=== PATIENT | female | born 1990 | race American Indian/Alaskan Native ===

== ENCOUNTER 2019-02-12 22:02 | Emergency (ER) | payer SELFPAY ==
--- NOTE | 2019-02-12 22:43 | Event Note ---
ED Screening Note Date of service: 02/12/19 Time: 22:37 ED Screening Note: REPORTS SOLER X FOR YEARS LOCATED TO FRONT OF HEAD AND DAILY . LOCATED TO LT HOLINESS AND THROBBING AND SOMETIMES MAKES EYES HURT. SOMETIMS WITH SENSITIVITUY TO LIGHT AND SOUND. REPORTS FEELING OF MOTION SICKNESS . REPORTS SWELLING AROUND ANKLE X 9 YEARS AGO AFTER CAME OFF THYROID MEDS. H/O OF HYPOTHYROIDISM AND WAS ON LEVOTHYROXINE BUT HAS NOT TAKEN IN 9 YEARS DUE TO LACK, REPORTS TIREDNESS AND WEIGHT GAIN WITH CRISTEL ANKLE SWELLING. SOMETIMES SHOOT CP BUT NONE TODAY. REPORT S SOMETIME SOB WIT ACTIVITY This initial assessment/diagnostic orders/clinical plan/treatment(s) is/are subject to change based on patients health status, clinical progression and re- assessment by fellow clinical providers in the ED. Further treatment and workup at subsequent clinical providers discretion. Patient/guardian urged not to elope from the ED as their condition may be serious if not clinically assessed and managed. Initial orders include: LABS, URINE,CXR
[2019-02-12 23:42] LABS: Basophils % (Auto) 0.4 % (0.0-1.8); Eosinophils # (Auto) 0.1 K/mm3 (0.0-0.4); Eosinophils % (Auto) 0.9 % (0.0-4.3); Hematocrit 37.1 % (30.3-42.9); Hemoglobin 11.9 gm/dl (10.1-14.3); Lymphocytes # (Auto) 2.7 K/mm3 (1.2-5.4); Lymphocytes % (Auto) 27.9 % (13.4-35.0); Mean Corpuscular HGB Conc 32 % (30-34); Mean Corpuscular Volume 79 fl (79-97); Monocytes # (Auto) 0.8 K/mm3 (0.0-0.8); Monocytes % (Auto) 7.9 % (0.0-7.3); Platelet Count 343 K/mm3 (140-440); Red Blood Count 4.72 M/mm3 (3.65-5.03); Red Cell Distribution Width 15.2 % (13.2-15.2)
[2019-02-12 23:58] LABS: Bilirubin,Urine NEG (Negative); Blood,Urine SM (Negative); Color,Urine Yellow (Yellow); Mucus,Urine 3+ /HPF; Protein,Urine <15 mg/dL mg/dL (Negative); Urobilinogen,Urine < 2.0 mg/dL (<2.0)
[2019-02-13 00:04] LABS: Alanine Aminotransferase 10 units/L (7-56); Albumin 3.8 g/dL (3.9-5); BUN/Creatinine Ratio 17; Blood Urea Nitrogen 12 mg/dL (7-17); Calcium 8.5 mg/dL (8.4-10.2); Hemolysis Index 11
[2019-02-13 00:11] LABS: Free T4 (Free Thyroxine) 0.98 ng/dL (0.76-1.46)
--- NOTE | 2019-02-13 00:24 | Emergency Department Report ---
ED General Adult HPI - General Chief complaint: Headache Stated complaint: SOLER/BILATERAL FOOT EDEMA Time Seen by Provider: 02/12/19 22:36 Source: patient Mode of arrival: Ambulatory Limitations: No Limitations - History of Present Illness Initial comments: 28-year-old female presents to ED with headache and swelling to bilateral feet 9 years. Patient states she feels emesis. May be due to the fact that she is no longer taking her hypothyroid medication. Patient states she has been off of this medication for several years now. Patient reports chronic frontal headaches for the last 9 years. Denies any associated neck pain, fever, nausea or vomiting, blurred vision or dizziness. Patient states her foot swelling is normally relieved with elevation. Patient does not have a PCP at this time. -: year(s) (9) Location: head, left, right, lower extremity Quality: aching Consistency: constant Improves with: none Worsens with: none Associated Symptoms: headaches. denies: chest pain, cough, fever/chills, nausea/vomiting, shortness of breath - Related Data Previous Rx's Medication Instructions Recorded Last Taken Type Ibuprofen [Motrin] 600 mg PO Q8H PRN #40 tablet 02/10/14 Unknown Rx Sulfamethoxazole/Trimethoprim 1 each PO BID #20 tablet 02/10/14 Unknown Rx [Bactrim Ds] Butalb/Acetamin/Caff 50-325-40 1 tab PO Q6HR PRN #10 tab 02/13/19 Unknown Rx [Fioricet] Allergies Allergy/AdvReac Type Severity Reaction Status Date / Time No Known Allergies Allergy Verified 02/12/19 22:06 ED Review of Systems ROS: Stated complaint: SOLER/BILATERAL FOOT EDEMA Other details as noted in HPI Comment: All other systems reviewed and negative Constitutional: denies: chills, fever Respiratory: denies: shortness of breath Cardiovascular: denies: chest pain Gastrointestinal: denies: nausea, vomiting Neurological: headache, vertigo. denies: numbness, paresthesias ED Past Medical Hx - Past Medical History Previous Medical History?: Yes Additional medical history: Thyroid problems - Surgical History Additional Surgical History: D&C - Social History Smoking Status: Never Smoker Substance Use Type: None - Medications Home Medications: Home Medications Medication Instructions Recorded Confirmed Last Taken Type Ibuprofen [Motrin] 600 mg PO Q8H PRN #40 tablet 02/10/14 Unknown Rx Sulfamethoxazole/Trimethoprim 1 each PO BID #20 tablet 02/10/14 Unknown Rx [Bactrim Ds] Butalb/Acetamin/Caff 50-325-40 1 tab PO Q6HR PRN #10 tab 02/13/19 Unknown Rx [Fioricet] ED Physical Exam - General Limitations: No Limitations General appearance: alert, in no apparent distress - Head Head exam: Present: atraumatic, normocephalic - Eye Eye exam: Present: normal appearance, PERRL, EOMI - ENT ENT exam: Present: mucous membranes moist - Neck Neck exam: Present: normal inspection, full ROM. Absent: meningismus - Respiratory Respiratory exam: Present: normal lung sounds bilaterally. Absent: respiratory distress - Cardiovascular Cardiovascular Exam: Present: regular rate, normal rhythm - GI/Abdominal GI/Abdominal exam: Absent: distended - Extremities Exam Extremities exam: Present: normal inspection. Absent: pedal edema - Neurological Exam Neurological exam: Present: alert, oriented X3, CN II-XII intact. Absent: motor sensory deficit - Psychiatric Psychiatric exam: Present: normal affect, normal mood - Skin Skin exam: Present: warm, dry, intact, normal color ED Course Vital Signs 02/12/19 02/13/19 22:09 00:36 Temperature 98.5 F Pulse Rate 79 74 Respiratory 18 18 Rate Blood Pressure 149/93 Blood Pressure 122/72 [Left] O2 Sat by Pulse 100 100 Oximetry ED Medical Decision Making - Lab Data Result diagrams: 02/12/19 23:02 02/12/19 23:02 - Medical Decision Making 28-year-old female with headache and intermittent feet swelling for the last 9 years. Initial BP was elevated, however repeat is normal. Labs show mild hypokalemia, normal thyroid function studies. Potassium was replaced here in the ED. No evidence of edema on exam. Patient advised to follow up as an outpatient. Return precautions given. - Differential Diagnosis preeclampsia, HTN headache, renal disease, chf Critical care attestation.: If time is entered above; I have spent that time in minutes in the direct care of this critically ill patient, excluding procedure time. ED Disposition Clinical Impression: Chronic headache, Hypokalemia Disposition: - TO HOME OR SELFCARE Is pt being admited?: No Condition: Stable Instructions: Migraine Headache (ED), Tension Headache (ED), Hypokalemia (ED) Prescriptions: Butalb/Acetamin/Caff 50-325-40 [Fioricet] 1 tab PO Q6HR PRN #10 tab PRN Reason: Headache Referrals: [facility] [Outside] - 3-5 Days [facility] [Provider Group] - 3-5 Days Forms: Work/School Release Form(ED) Time of Disposition: 00:29
[2019-02-13] MEDS ORDERED: POTASSIUM CHLORIDE ER 20 MEQ TAB PO ONE (00:28)
[2019-02-13 01:05] VITALS: BP 122/72
== END 2019-02-13 01:15 | disposition home or self-care (01) ==
LOC: ED 22:02
DX: G89.29 Other chronic pain (principal); R51 Headache; E87.6 Hypokalemia; Z98.890 Other specified postprocedural states
CPT/HCPCS: 36415; 80053; 81001; 84439; 84443; 84703; 85025; 99283

== ENCOUNTER 2019-07-21 15:06 | Emergency (ER) | payer SELFPAY ==
[2019-07-21 16:32] VITALS: BP 126/86
[2019-07-21] MEDS ORDERED: IBUPROFEN 600 MG TAB PO ONE ×2 (16:33)
--- NOTE | 2019-07-21 16:35 | Emergency Department Report ---
Blank Doc - Documentation Documentation: 28-year-old female that presents with cough, fever, chills, and headache. This initial assessment/diagnostic orders/clinical plan/treatment(s) is/are subject to change based on patient's health status, clinical progression and re- assessment by fellow clinical providers in the ED. Further treatment and workup at subsequent clinical providers discretion. Patient/guardians urged not to elope from the ED as their condition may be serious if not clinically assessed and managed. Initial orders include: 1- Patient sent to [facility] for further evaluation and treatment 2- CXR 3- motrin-RN to repeat vitals
--- NOTE | 2019-07-21 17:08 | XRay Report ---
CHEST 2 VIEWS INDICATION / CLINICAL INFORMATION: cough. COMPARISON: None available. FINDINGS: SUPPORT DEVICES: None. HEART / MEDIASTINUM: No significant abnormality. LUNGS / PLEURA: No significant pulmonary or pleural abnormality. No pneumothorax. ADDITIONAL FINDINGS: No significant additional findings. IMPRESSION: 1. No acute findings. Signer Name: Radha Norton MD Signed: 07/21/2019 5:03 PM Workstation Name: [id number]
--- NOTE | 2019-07-21 19:39 | Emergency Department Report ---
Chief Complaint: Upper Respiratory Infection Stated Complaint: HEADACHE 3DAYS Time Seen by Provider: 07/21/19 16:33 - HPI History of Present Illness: Patient is a 28-year-old female presents the emergency room with complaints of flulike symptoms that began 3 days ago. She states that she has associated cough, increased mucus production, mild rhinorrhea, she states initially she had a sore throat but that has since improved. She denies any vomiting, diarrhea, ear pain, SOB, Chest pain. She denies any recent travel outside of the [place]. She denies any known sick contacts. she has had no contact with person with COVID 19. She states her only past medical history is a "thyroid issue". She denies any allergies to medications. She states her last menstrual cycle was 06/24/2019. Initial vitals with elevated temperature and heart rate which improved to normal upon ibuprofen administration ROS: all systems reviewed and are negative except as documented in HPI On exam: Non toxic appearing, no acute distress atraumatic, normocephalic normal appearance of the eyes, PERRL, EOMI, no periorbital edema or ecchymosis moist mucus membranes, normal oropharynx, no tonsillar hypertrophy or exudates, normal nasal turbinates, no sinus tenderness to palpation regular heart rate and rhythm, no gallops, no rubs, no murmurs breath sounds are clear bilaterally, no w/r/r, no stridor, no respiratory distress, no accessory muscle use A&O x4, no focal neuro deficit skin is warm, dry, intact, no rash CXR ordered prior to my examination with no acute process Symptoms and examination consistent with influenza or another viral-like illness Patient is out of the 48-hour range for Tamiflu Discussed the importance of oral rehydration Discussed supportive care and symptomatic treatment with patient Discussed to get plenty of rest referred pt to PCP for reevaluation discussed strict return precautions with pt medical screening examination performed and there is no threat to life or limb at this time advised pt to please increase your fluid intake over the next several days. May alternate Tylenol then ibuprofen every 6 hours as needed for fever or body aches. May take ctkd-ldp-vcplzan medications such as TheraFlu or Mucinex. If you cough or sneeze please do it into a napkin and throw it away then wash your hands. Wash your hands frequently. Please stay at home until your symptoms have improved. Please do not go to work until your 24-hour symptom-free. Follow-up with your primary care doctor. Return to the emergency room for any new or worsening symptoms including but not limited to worsening fevers, difficulty breathing, inability to tolerate by mouth intake, chest pain, etc. - Exam Vital Signs: Vital Signs 07/21/19 16:30 Temperature 101.6 F H Pulse Rate 103 H Respiratory 18 Rate Blood Pressure 126/86 O2 Sat by Pulse 98 Oximetry MSE screening note: Focused history and physical exam performed. ED Medical Decision Making - Radiology Data Radiology results: report reviewed CHEST 2 VIEWS INDICATION / CLINICAL INFORMATION: cough. COMPARISON: None available. FINDINGS: SUPPORT DEVICES: None. HEART / MEDIASTINUM: No significant abnormality. LUNGS / PLEURA: No significant pulmonary or pleural abnormality. No pneumothorax. ADDITIONAL FINDINGS: No significant additional findings. IMPRESSION: 1. No acute findings. Signer Name: Radha Norton MD Signed: 07/21/2019 5:03 PM Workstation Name: [id number] Transcribed By: [facility] Dictated By: Radha Norton MD Electronically Authenticated By: Radha Norton MD Signed Date/Time: 07/21/191702 DD/ 02 TD/TT: ED Disposition for MSE Clinical Impression: Viral illness Disposition: Z-07 MED SCREENING EXAM-LEFT Is pt being admited?: No Does the pt Need Aspirin: No Condition: Stable Instructions: Viral Syndrome (ED) Additional Instructions: Please increase your fluid intake over the next several days. May alternate Tylenol then ibuprofen every 6 hours as needed for fever or body aches. May take lrbi-olq-aflwnwm medications such as TheraFlu or Mucinex. If you cough or sneeze please do it into a napkin and throw it away then wash your hands. Wash your hands frequently. Please stay at home until your symptoms have improved. Please do not go to work until your 24-hour symptom-free. Follow-up with your primary care doctor. Return to the emergency room for any new or worsening symptoms including but not limited to worsening fevers, difficulty breathing, inability to tolerate by mouth intake, chest pain, etc. Referrals: JOSE M SOLITARIO MD [Staff Physician] - 3-5 Days [facility] [Outside] - 3-5 Days [facility] [Outside] - 3-5 Days Forms: Work/School Release Form(ED) Time of Disposition: 19:37 Print Language: JAPANESE
== END 2019-07-21 20:00 | disposition left against medical advice (07) ==
LOC: ED 15:06
DX: B34.9 Viral infection, unspecified (principal)
CPT/HCPCS: 71046; 99283